=== PATIENT | female | born 1960 | race Hispanic/Latino ===

== ENCOUNTER 2016-12-27 20:43 | Emergency (ER) | payer MEDICAID ==
[~2016-12-27] VITALS: Ht 152.4 cm; Wt 68.7 kg
[~2016-12-27 20:43] MED LIST: ATORVASTATIN CA40 MG PO; AZITHROMYCIN250 MG1 PO; PANTOPRAZOLE SO40 MG PO; VENTOLIN HFA18 GM IH
[2016-12-27 22:19] LABS: ADD MIUA? YES; BILIRUBIN NEGATIVE; BLOOD SMALL; COLOR STRAW ((YELLOW)); GLUCOSE (STRIP) NEGATIVE; KETONES NEGATIVE; LEUKOCYTES NEGATIVE; NITRITE NEGATIVE; PROTEIN (STRIP) 30; SPECIFIC GRAVITY 1.013 (1.000-1.030)
[2016-12-27 22:23] LABS: BACTERIA RARE /HPF; EPITHELIAL CELLS RARE /HPF; MUCUS TRACE /LPF; RED BLOOD CELLS 0-5 /HPF (0-5); UCUL ADDED? NO; WHITE BLOOD CELLS 0-5 /HPF (0-5)
[2016-12-27] MEDS ORDERED: NAPROXEN500 MG PO (22:58)
[2016-12-27 23:13] VITALS: BP 162/99
== END 2016-12-27 23:14 | disposition home or self-care (01) ==
LOC: EME 20:43
PROVIDERS: Physician Assistant
DX: M76.12 Psoas tendinitis, left hip (principal); I10 Essential (primary) hypertension; J44.9 Chronic obstructive pulmonary disease, unspecified; E78.5 Hyperlipidemia, unspecified; Z87.891 Personal history of nicotine dependence
CPT/HCPCS: 74176; 81003; 99281; 99284; J1100